=== PATIENT | male | born 1965 | race Caucasian/White ===

== ENCOUNTER 2021-12-02 07:12 | Day surgery (SDC) | payer OTHER ==
[2021-12-02] VITALS (15 sets, daily range): BP systolic 124–165; BP diastolic 66–102; PULSE 56–83; TEMP 97.6–98.3
[~2021-12-02] VITALS: Ht 175.3 cm; Wt 138.0 kg
[~2021-12-02 07:12] MED LIST: DESYREL 50MG50 MG PO; EFFEXOR-XR150 MG PO; EPIPEN 2-PAK1 MG/ML IM; INSPRA25 MG PO; IPRATROPIUM BROM3 M1 IH; LASIX 20MG TABL20 MG PO; LIPITOR 80MG80 MG PO; MUCUS RELIEF400 M1 PO; NEURONTIN300 MG/CAP PO; NORVASC 5MG5 MG/TAB PO; PEPCID 20MG TAB20 MG PO; PREDNISONE 5MG5 MG PO; PROAIR HFA0.09 MG/AC IH; XANAX 0.5MG0.5 MG PO; ZYLOPRIM 100MG100 MG PO; ZYPREXA20 MG PO
[2021-12-02 08:16] LABS: HEMOGLOBIN 15.2 g/dl (13.5-18.0); MEAN CELL VOLUME 94 fl (80.0-100.0); MEAN CORPUSCULAR HEMOGLOBIN 32 pg (27-31); MEAN CORPUSCULAR HGB CONC 35 g/dl (33.0-37.0); MEAN PLATELET VOLUME 10.9 fl (7.4-10.4); PLATELET COUNT 214 K/mm3 (130-400); REDCELL DISTRIBUTION WIDTH-CV 14.3 % (11.5-14.5)
[2021-12-02 08:34] LABS: INR 0.9 (0.8-3.0); PROTHROMBIN TIME 10.8 SECONDS (9.7-12.8)
[2021-12-02 08:36] LABS: PARTIAL THROMBOPLASTIN TIME 29.8 SECONDS (26.0-37.0)
[2021-12-02 08:39] LABS: CALCIUM 8.6 mg/dL (8.4-10.2); CREATININE, serum 0.81 mg/dL (0.72-1.25); POTASSIUM 3.8 mmol/L (3.5-4.5)
[2021-12-02] MEDS ORDERED: TYLENOL 325MG325 MG PO (08:57)
[2021-12-02] MEDS ORDERED: ASPIRIN 81M81 MG/TA2 PO (08:59)
[2021-12-02] MEDS ORDERED: COREG 25MG25 MG/TAB PO (09:00)
[2021-12-02] MEDS ORDERED: VITAMIN D31000 I1 PO (09:00)
[2021-12-02] MEDS ORDERED: FLEXERIL 1010 MG/TAB PO (09:02)
--- NOTE | 2021-12-02 09:16 | NUR ---
SEE MERGE FOR ALL MEDICATION ADMINISTRATION TIMES, INTRA AND POST SEDATION ASSESSMENTS
[2021-12-02] MEDS ORDERED: NITROSTAT0.4 MG/TAB SL (09:23)
[2021-12-02] MEDS ORDERED: SEN-O-TABS8.6 MG PO (09:24)
[2021-12-02] MEDS ORDERED: HYDRO TOP (09:25)
[2021-12-02] MEDS ORDERED: PREVIDENT5000PLUS DT (09:26)
[2021-12-02] MEDS ORDERED: MOI STIR MM (09:27)
--- NOTE | 2021-12-02 09:30 | NUR ---
Initial visit; Patient and his Grand-daughter thanked Hat Brusher Machine for prayer and encouragement prior to his surgical procedure. Hat Brusher Machine wished him well.
[2021-12-02] MEDS ORDERED: PREDNISONE 5MG5 MG PO (13:36)
--- NOTE | 2021-12-02 13:37 | NUR ---
PT ADMITTED TO UNIT. ADMISSION INTAKE AND ASSESSMENT COMPLETED. MED REC UPDATED. PT ORIENTED TO ROOM. PT DENIES ANY NEEDS AT THIS TIME. VSS. R WRIST REMAINS IN RADIAL BAND AT THIS TIME. WILL CONTINUE TO MONITOR.
--- NOTE | 2021-12-02 16:36 | NUR ---
Radial Heart Cath- Reviewed discharge instructions for radial heart catheterization. Cleaning site with mild soap and water, pat dry. Discussed monitoring for redness, hot to touch, inflammation, or temperature >100.4. Discussed when to contact the physician for signs of symptoms of complications or MS. Also reviewed risk factors for heart disease. Covered applicable modifiable risk factors including the following: tobacco cessation, HTN, hyperlipidemia, diabetes, overweight/obesity, sedentary lifestyle, and stress/depression. Patient verbalized understanding. PT REPORTED MOVING IN THE NEXT 2 WEEKS TO [place], [place] Referral sent to [facility]. [facility] phone number given if questions or concerns arise. Cardiac Rehab with patient s permission.
[2021-12-03 00:40] VITALS: BP 156/68; PULSE 73; TEMP 97.6
[2021-12-03 03:47] LABS: BASO % 0.3 % (0.0-2.0); EOS # 0.3 K/mm3 (0.0-0.7); EOS % 5.7 % (0.0-4.0); GRAN % 65.9 % (42.2-75.2); HEMATOCRIT 44.2 % (42.0-52.0); HEMOGLOBIN 14.9 g/dl (13.5-18.0); LYMPH # 0.8 K/mm3 (1.2-3.4); LYMPH % 13.5 % (20.0-51.0); MEAN CELL VOLUME 96 fl (80.0-100.0); MEAN CORPUSCULAR HEMOGLOBIN 32 pg (27-31); MEAN CORPUSCULAR HGB CONC 34 g/dl (33.0-37.0); MEAN PLATELET VOLUME 10.9 fl (7.4-10.4); MONO # 0.8 K/mm3 (0.1-0.6); MONO % 13.8 % (1.7-9.3); PLATELET COUNT 191 K/mm3 (130-400); RED BLOOD COUNT 4.62 M/mm3 (4.20-5.60); REDCELL DISTRIBUTION WIDTH-CV 14.5 % (11.5-14.5)
[2021-12-03 04:25] LABS: CALCIUM 8.9 mg/dL (8.4-10.2); CREATININE, serum 0.7 mg/dL (0.72-1.25); POTASSIUM 3.8 mmol/L (3.5-4.5)
[2021-12-03 04:27] VITALS: BP 156/87; PULSE 62; TEMP 97.5
--- NOTE | 2021-12-03 05:30 | NUR ---
PT HAD SOME ANXIETY THIS SHIFT. PT GIVEN XANAX. PT FELT THE XANAX WAS EFFECTIVE. PT'S RT RADIAL SITE SHOWED NO SIGNS OF HEMATOMA OR BLEEDING. PT DENIED PAIN TO SITE. CALL LIGHT WITHIN REACH.
[2021-12-03 07:16] VITALS: BP 173/89; PULSE 61; TEMP 98.2
--- NOTE | 2021-12-03 09:49 | NUR ---
Initial visit; Patient thanked Pipe Inspector for looking in on him again this morning and listening. Pipe Inspector wished patient well and encouraged him to take care of his "[place]" his mind and his Spirit.
[2021-12-03] MEDS ORDERED: BRILINTA90 MG PO (10:52)
[2021-12-03] MEDS ORDERED: LIPITOR 80MG80 MG PO (10:52)
[2021-12-03] MEDS ORDERED: COREG 6.256.25 MG/TA PO (10:54)
[2021-12-03] MEDS ORDERED: NORVASC 5MG5 MG/TAB PO (10:54)
--- NOTE | 2021-12-03 11:03 | NUR ---
PT RESTING IN BED. MORNING MEDICATIONS GIVEN. SHIFT ASSESSMENT COMPLETED. PT EAGER FOR D/C. UPDATED ON POC. WILL CONTINUE TO MONITOR.
[2021-12-03 11:49] VITALS: BP 127/89; BP 150/84; PULSE 59; TEMP 98.4
--- NOTE | 2021-12-03 13:19 | NUR ---
PT ESCORTED DOWN WITH PERSONAL BELONINGS. WILL D/C FROM SYSTEM.
== END 2021-12-03 13:20 | disposition home or self-care (01) ==
LOC: COL.CAR 07:12 → MEDICAL 12:04 → COL.CAR 12-03 13:20
PROVIDERS: Internal Medicine Cardiovascular Disease
DX: I25.10 Atherosclerotic heart disease of native coronary artery without angina pectoris (principal); I08.1 Rheumatic disorders of both mitral and tricuspid valves
CPT/HCPCS: OP; C1725; C1769; C1874; C1887; J0583; J1644; J2250; J3010